=== PATIENT | male | born 1995 | race Caucasian/White ===

== ENCOUNTER 2025-03-16 19:32 | Emergency (ER) | payer MEDICARE ==
[2025-03-16 20:00] LABS: BASOPHILS ABSOLUTE AUTO 0.1 x10-3/uL (0.0-0.3); BASOPHILS PERCENT AUTO 0.5 % (0.3-3.8); EOSINOPHILS PERCENT AUTO 0.3 % (0.1-6.8); HEMATOCRIT 50.2 % (38.3-50.1); HEMOGLOBIN 16.8 g/dL (12.9-17.7); LYMPHOCYTES ABSOLUTE AUTO 1.2 x10-3/uL (0.5-4.5); LYMPHOCYTES PERCENT AUTO 9.7 % (15.8-45.3); MEAN CORPUSCULAR HEMOGLOBIN 32.9 pg (27.0-33.3); MEAN CORPUSCULAR HGB CONC 33.5 g/dL (28.7-35.3); MEAN PLATELET VOLUME 9.3 fL (6.7-11.0); MONOCYTES PERCENT AUTO 8.1 % (5.5-15.2); NEUTROPHILS PERCENT AUTO 81.4 % (40.3-71.8); PLATELET COUNT,PLT 272 x10(3)uL (117-477); RED BLOOD CELL COUNT 5.12 x10(6)uL (3.90-5.90); RED CELL DISTRIBUTION WIDTH 14.6 % (12.4-15.0); WHITE BLOOD CELL COUNT,WBC 12.3 x10-3/uL (3.2-10.1)
[2025-03-16 20:02] LABS: BLOOD UREA NITROGEN,BUN 21 mg/dL (7-18); BUN/CREATININE RATIO 17.5 (9-20); CALCIUM 9.4 mg/dL (8.6-10.2); CARBON DIOXIDE,CO2 29 mmol/L (21-32); CHLORIDE,CL 99 mmol/L (100-110); CREATININE 1.2 mg/dL (0.70-1.30); EST CRCL DRUG DOSING (CG) 97.61 mL/min; ESTIMATED GFR 84 mL/min (>60); GLUCOSE RANDOM 216 mg/dL (80-116); POTASSIUM,K 4.1 mmol/L (3.5-5.3); SODIUM,NA 138 mmol/L (135-145)
[2025-03-16 20:07] LABS: ACETAMINOPHEN < 2 ug/mL (<2)
[2025-03-16 20:18] LABS: AMPHETAMINES SCREEN, URINE NEGATIVE (NEGATIVE); BARBITURATE SCREEN,URINE NEGATIVE (NEGATIVE); BENZODIAZEPINES SCREEN,URINE NEGATIVE (NEGATIVE); METHADONE SCREEN, URINE NEGATIVE (NEGATIVE); METHAMPHETAMINE SCREEN, URINE NEGATIVE (NEGATIVE); OXYCODONE SCREEN,URINE NEGATIVE (NEGATIVE); THC SCREEN,URINE NEGATIVE (NEGATIVE)
[2025-03-16 20:19] LABS: BUPRENORPHINE SCREEN,URINE NEGATIVE (NEGATIVE)
[2025-03-16] MEDS: Carvedilol 12.5 MG Tab PO SCH (21:53)
[2025-03-16] MEDS: busPIRone 15 MG Tab PO ONE (21:54)
[2025-03-16] MEDS: Bumetanide 1 MG Tab PO ONE (21:54)
[2025-03-16] MEDS: metFORMIN 500 MG Tab PO ONE (21:54)
[2025-03-17] MEDS ORDERED: Bumetanide 1 MG Tab PO SCH (08:00)
[2025-03-17] MEDS ORDERED: metFORMIN 500 MG Tab PO SCH (08:00)
[2025-03-17] MEDS: Naltrexone 50 MG Tab PO ONE (08:18)
[2025-03-17] MEDS: metFORMIN 1,000 MG Tab PO ONE (08:20)
[2025-03-17] MEDS: DULoxetine 60 MG Cap PO ONE (08:20)
[2025-03-17] MEDS: Empagliflozin 10 MG Tab PO SCH (08:20)
[2025-03-17] MEDS: Bumetanide 1 MG Tab PO ONE (08:21)
[2025-03-17] MEDS: Lisinopril 20 MG Tab PO SCH (08:21)
[2025-03-17] MEDS: busPIRone 15 MG Tab PO ONE (08:22)
[2025-03-17] MEDS ORDERED: busPIRone 15 MG Tab PO SCH (09:00)
== END 2025-03-17 13:10 ==
LOC: FB.ED 19:32
DX: R45.851 Suicidal ideations (principal); Z88.0 Allergy status to penicillin; Z88.1 Allergy status to other antibiotic agents; Z79.899 Other long term (current) drug therapy; Z79.84 Long term (current) use of oral hypoglycemic drugs
CPT/HCPCS: 36415; 80048; 80143; 80179; 80307; 85025; 99285; A9270

== ENCOUNTER 2025-05-26 20:35 | Emergency (ER) | payer MEDICARE, OTHER ==
[2025-05-26 20:59] LABS: BASOPHILS ABSOLUTE AUTO 0.1 x10-3/uL (0.0-0.3); BASOPHILS PERCENT AUTO 0.4 % (0.3-3.8); EOSINOPHILS ABSOLUTE AUTO 0.1 x10-3/uL (0.0-0.6); EOSINOPHILS PERCENT AUTO 0.6 % (0.1-6.8); LYMPHOCYTES ABSOLUTE AUTO 1.6 x10-3/uL (0.5-4.5); LYMPHOCYTES PERCENT AUTO 12.5 % (15.8-45.3); MEAN PLATELET VOLUME 8.9 fL (6.7-11.0); MONOCYTES ABSOLUTE AUTO 1.2 x10-3/uL (0.0-1.2); MONOCYTES PERCENT AUTO 9.3 % (5.5-15.2); NEUTROPHILS ABSOLUTE AUTO 9.6 x10-3/uL (1.7-6.9); NEUTROPHILS PERCENT AUTO 77.2 % (40.3-71.8); PLATELET COUNT,PLT 287 x10(3)uL (117-477); RED BLOOD CELL COUNT 4.96 x10(6)uL (3.90-5.90); RED CELL DISTRIBUTION WIDTH 13.6 % (12.4-15.0); WHITE BLOOD CELL COUNT,WBC 12.5 x10-3/uL (3.2-10.1)
[2025-05-26 21:00] LABS: BLOOD UREA NITROGEN,BUN 18 mg/dL (7-18); CARBON DIOXIDE,CO2 30 mmol/L (21-32); CHLORIDE,CL 97 mmol/L (100-110); CREATININE 1.2 mg/dL (0.70-1.30); EST CRCL DRUG DOSING (CG) 82.70 mL/min; ESTIMATED GFR 84 mL/min (>60); GLUCOSE RANDOM 143 mg/dL (80-116); POTASSIUM,K 3.6 mmol/L (3.5-5.3); SODIUM,NA 136 mmol/L (135-145)
[2025-05-26 21:06] LABS: A/G RATIO 1.0; ALANINE AMINOTRANSFERASE,ALT 41 U/L (12-36); ASPARTATE AMNIOTRANSFERASE,AST 19 IU/L (5-25); BILIRUBIN TOTAL 0.7 mg/dL (0.1-1.3); PROTEIN TOTAL,TP 8.2 g/dL (6.0-8.0)
[2025-05-26 21:16] LABS: AMPHETAMINES SCREEN, URINE NEGATIVE (NEGATIVE); BUPRENORPHINE SCREEN,URINE NEGATIVE (NEGATIVE); METHADONE SCREEN, URINE NEGATIVE (NEGATIVE); METHAMPHETAMINE SCREEN, URINE NEGATIVE (NEGATIVE); OXYCODONE SCREEN,URINE NEGATIVE (NEGATIVE)
== END 2025-05-26 21:58 | disposition home or self-care (01) ==
LOC: FB.ED 20:35
DX: F32.A Depression, unspecified (principal); Z88.0 Allergy status to penicillin; Z79.899 Other long term (current) drug therapy; Z79.84 Long term (current) use of oral hypoglycemic drugs
CPT/HCPCS: 36415; 80053; 80143; 80179; 80307; 85025; 99285